=== PATIENT | female | born 1950 | race African-American/Black ===

== ENCOUNTER 2025-02-06 11:05 | Outpatient (CLI) | payer MEDICARE, MEDICAID, SELFPAY ==
[2025-02-06 19:19] LABS: Alanine Aminotransferase 14 U/L (6-35); Albumin Level 3.9 g/dL (3.5-5.1); Alkaline Phosphatase 180 U/L (38-126); Anion Gap 4 mmol/L (4-12); Aspartate Amino Transferase 19 U/L (14-36); Bilirubin,Total 0.5 mg/dL (0.2-1.3); Blood Urea Nitrogen 19 mg/dL (7-17); Calcium 10.4 mg/dL (8.4-10.2); Carbon Dioxide 31 mmol/L (22-30); Chloride 103 mmol/L (98-107); Estimated Glomerular Filt Rate 36; Glucose 106 mg/dL (65-110); Potassium 3.9 mmol/L (3.4-5.0); Sodium 138 mmol/L (137-145); Total Protein 8.1 g/dL (6.3-8.2)
[2025-02-07 18:08] LABS: Calcium, Ionized 5.8 mg/dL (4.5-5.6)
== END 2025-02-06 11:06 | disposition home or self-care (01) ==
LOC: ANHGOSHLAB 11:06
PROVIDERS: Visit Provider Otolaryngology
DX: E21.0 Primary hyperparathyroidism (principal)
CPT/HCPCS: 36415; 80053; 82330; 83970

== ENCOUNTER 2025-03-18 11:34 | Outpatient (CLI) | payer MEDICARE, MEDICAID, SELFPAY ==
--- NOTE | ~2025-03-18 | CT_ITS ---
EXAM/PROCEDURE: CT soft tissue neck wo/w con HISTORY: E21.0 - Primary hyperparathyroidism COMPARISON: None available. TECHNIQUE: IV contrast-enhanced soft tissue neck CT performed using 40 technique. FINDINGS: No lesions or nodules about the thyroid gland suspicious for parathyroid adenoma identified. Several nodules are noted in the right lobe of the thyroid including a mildly heterogeneous but iso enhancing 1.3 cm nodule in the lower pole of the right lobe posteriorly image 52 series 6. Enhancement and deenhancement features are somewhat similar to the thyroid and this could represent a closely insinuated or smoothly contiguous parathyroid adenoma. 5 mm nodules x2 are also present at the same level in the inferior pole of the right lobe anteriorly. Scattered nonpathologic sized lymph nodes are seen throughout the neck. No suspicious masses identified. No acute or aggressive bony or soft tissue process seen. Mild fibrotic appearing changes in the right lung apex. Moderately severe diffuse degenerative changes throughout the cervical spine. IMPRESSION: No compelling findings confirmatory for parathyroid adenoma, however there is a 1.3 cm nodule along the posterior aspect of the inferior pole of the right lobe which could be insinuated so closely at the thyroid margin that this may be a parathyroid adenoma. Correlate with parathyroid scintigraphy and possibly thyroid ultrasound as clinically appropriate. Reviewed, dictated and finalized at location A. [facility] IMPRESSION: No compelling findings confirmatory for parathyroid adenoma, how ever there is a 1.3 cm nodule along the posterior aspect of the inferior pole o f the right lobe which could be insinuated so closely at the thyroid margin adwoa t this may be a parathyroid adenoma. Correlate with parathyroid scintigraphy an d possibly thyroid ultrasound as clinically appropriate.
[2025-03-18 12:15] LABS: Estimated Glomerular Filt Rate 40
--- OUTSIDE RECORDS SUMMARY | 2025-03-18 15:56 | XMS_ITS | Clinical Summary ---
Author Organization [facility] Address [address] [place] [address] Care Team Providers Care Arabic Linguist Name Role Phone Arielle Mtz MD Primary Care Provider Surgical History Surgery Date Site/Laterality Comments HYSTERECTOMY Social History Tobacco Use Types Packs/Day Years Used Date Smoking Tobacco: Never Assessed Comments No Sex and Gender Information Value Date Recorded Sex Assigned at Not on file Legal Sex Female 7:01 PM DIE ATTACHER Gender Identity Not on file Sexual Orientation Not on file Obstetrics History Para Term AB IAB SAB Ectopic Multiple Livin g Live Births 5 5 5 Date Outcome GA Total Labor Labor/2nd/3rd Weight Sex Type Anes PTL Kendra A1 A5 Name Clin Term Term Term Term Term Last Filed Vital Signs Vital Sign Reading Time Taken Comments Blood Pressure 129/57 06/05/2013 12:50 AM DIE ATTACHER Pulse 87 06/05/2013 12:50 AM DIE ATTACHER Temperature 36.6 C (97.8 F) 06/05/2013 12:50 AM DIE ATTACHER Respiratory Rate - - Oxygen Saturation 97% 06/05/2013 12:50 AM DIE ATTACHER Inhaled Oxygen Concentration - - Weight 120.2 kg (265 lb) 06/05/2013 12:50 AM DIE ATTACHER Height 170.2 cm (5' 7) 06/05/2013 12:50 AM DIE ATTACHER Body Mass Index 41.5 06/05/2013 12:50 AM DIE ATTACHER Plan of Treatment Health Maintenance Due Date Last Done Comments Colon Cancer Screening-Colonoscopy 1950 Depression Screening 1950 Fall Risk Assessment 1950 Hepatitis C Screening 1950 Osteoporosis Screening-Bone Density Scan 1950 DTaP/Tdap/Td Vaccine (1 - Tdap) 1961 Hepatitis B Screening 1968 Pneumococcal vaccine 65+ (1 of 2 - PCV) 1969 Zoster Vaccine (1 of 2) 2000 Well Visit 65+ 2015 Breast Cancer Screening-Mammogram 05/12/2023 023 Covid-19 Vaccine (3 - season) 2024, 07/11/2020 Influenza Vaccine (#1) 2024 Procedures Procedure Name Priority Date/Time Associated Diagnosis Comments SCREENING MAMMOGRAM BILATERAL W OBIE Schedule Routine, Read Routine (OP Routine) 05/12/2022 10:49 AM DIE ATTACHER Encounter for screening mammogram for malignant neoplasm of breast from Last 3 Months or Most Recently Relevant to Health Maintenance Results * Screening Mammogram Bilateral W Obie (05/12/2022 10:49 AM DIE ATTACHER) Anatomical Region Laterality Modality Breast Bilateral Mammography Impressions 05/12/2022 1:13 PM DIE ATTACHER BI-RADS ATLAS category (overall): 2 - Benign There is no mammographic evidence of malignancy. A 1 year screening mammogram is recommended. The patient has been or will be contacted. We recommend annual screening mammography for women at average risk of breast cancer beginning at age 40, based on guidelines of the [employer] (ACR Practice Parameter for the Performance of Screening and Diagnostic Mammography) and [employer]. For women with and elevated risk of breast cancer, please refer to the ACR Practice Parameter for specific screening recommendations. The patient will be entered into a reminder system with a target due date of 1 year for her next screening exam. Narrative 05/12/2022 1:13 PM DIE ATTACHER Screening Mammogram Bilateral W Obie: 05/12/22 The study was acquired using full field digital technology and interpreted from soft copy. 2D digital mammographic views, as well as 3D digital tomosynthesis were performed in the CC and MLO projections. CLINICAL: Encounter for screening mammogram for malignant neoplasm of breast. No relevant medical history has been documented for this patient. No known family history of breast cancer. COMPARISONS: 11/05/2020 Breast Imaging Screening Outside Reference 04/29/2019 Breast Imaging Screening Outside Reference 02/18/2018 Breast Imaging Screening Outside Reference 12/30/2016 Breast Imaging Screening Outside Reference BREAST TISSUE: The breasts are heterogeneously dense, which may obscure small masses. FINDINGS: There are unchanged benign microcalcifications in both breasts. There is no new suspicious finding in either breast on mammogram. Arielle Mtz MD IMG MAMMO PROCEDURES F inal Result from Last 3 Months or Most Recently Relevant to Health Maintenance Insurance [employer] [facility] Care Teams Arabic Linguist Relationship Specialty Start Date End Date Arielle Mtz MD [id number] [facility] [place] [address] PCP - General Family Practice 05/12/22
== END 2025-03-18 11:35 | disposition home or self-care (01) ==
PROVIDERS: Visit Provider Otolaryngology
DX: E21.0 Primary hyperparathyroidism (principal)
CPT/HCPCS: 70492; Q9967